=== PATIENT | male | born 1950 | race Caucasian/White ===

== ENCOUNTER 2016-04-17 04:15 | Inpatient (IN) | payer MEDICARE, BC ==
[2016-04-17] VITALS (12 sets, daily range): BP systolic 121–192; BP diastolic 78–114; PULSE 88–136; RESP 19–30; TEMP 97.1; O2SAT 93–100
[~2016-04-17] VITALS: Ht 180.3 cm; Wt 63.4 kg
[2016-04-17] MEDS: RESP: ALBUTEROL 2.5 MG/IPRATROPIUM 0.5 MG NEB (SCH) INH (04:28)
[2016-04-17] MEDS ORDERED: methylPREDNISolone SOD SUCC 125 MG/2 ML VIAL IVP ONE (04:30)
[2016-04-17] MEDS ORDERED: LORazepam 2 MG/ML VIAL IV PUSH ONE (04:30)
[2016-04-17] MEDS ORDERED: SODIUM CHLORIDE 0.9% FLUSH 5 ML FLUSH IVF PRN (04:30)
[2016-04-17] MEDS ORDERED: ALBU0.08 NEB (04:37)
[2016-04-17] MEDS ORDERED: FISH1000 PO (04:37)
[2016-04-17] MEDS ORDERED: VENTAER INH (04:37)
--- NOTE | 2016-04-17 04:46 | PD ---
HPI Chief Complaint: Respiratory Distress Time Seen by Provider: 04:20 Travel History International Travel<30 days: No Contact w/Intl Traveler<30days: No Traveled to known affect area: No History of Present Illness HPI 65-year-old male arrives by EMS with dyspnea. He has a history of COPD. He ran out of his albuterol treatments at home. For the past 4-5 days he has been quite dyspneic. It has been gradually worsening. He describes some mild chest tightness. EMS notes an O2 sat of 70s on scene. He received a few breathing treatments en route as well as Solu-Medrol. EMS notes mild improvement with an O2 sat about 85% upon arrival here. No fever. PFSH Past Medical History High Cholesterol: Yes COPD: Yes Diminished Hearing: No Hypertension: Yes Tetanus Vaccination: Unknown Influenza Vaccination: No Past Surgical History Abdominal Surgery: Yes (tumor removed from ABD) Appendectomy: Yes Eye Surgery: Yes (cataract removed b/l) Genitourinary Surgery: Yes (prostate CA surgery ) Tonsillectomy: Yes Other Surgery: Yes (hernia repairs in groin, left leg vein replaced) Social History Alcohol Use: Yes (occasionally) Tobacco Use: Yes (0.5 ppd) Substance Use: Yes (franchesca valdivia) Allergies-Medications (Allergen,Severity, Reaction): Coded Allergies: No Known Allergies (Unverified , 04/17/16) Reported Meds & Prescriptions Reported Meds & Active Scripts Active Reported Ventolin Hfa 18 GM Inh (Albuterol Sulfate) 90 Mcg/Act Aer 2 Puff INH Q4-6H PRN Fish Oil ([place]-3 Fatty Acids) 1,000 Mg Cap 2 Tab PO JOHNNIE Albuterol Neb (Albuterol Sulfate) 2.5 Mg/3 Ml Neb 2.5 Mg NEB Q4HR NEB While awake Review of Systems Except as stated in HPI: all other systems reviewed are Neg Physical Exam Narrative GENERAL: 65 yo M, moderate distress 2/2 dyspnea and/or anxiety SKIN: Warm and dry. HEAD: Atraumatic. Normocephalic. EYES: Pupils equal and round. No scleral icterus. No injection or drainage. ENT: No nasal bleeding or discharge. Mucous membranes pink and moist. NECK: Trachea midline. No JVD. CARDIOVASCULAR: Regular rate and rhythm. RESPIRATORY: No accessory muscle use. Clear to auscultation. Breath sounds equal bilaterally. GASTROINTESTINAL: Abdomen soft, non-tender, nondistended. Hepatic and splenic margins not palpable. MUSCULOSKELETAL: Extremities without clubbing, cyanosis, or edema. No obvious deformities. NEUROLOGICAL: Awake and alert. No obvious cranial nerve deficits. Motor grossly within normal limits. Five out of 5 muscle strength in the arms and legs. Normal speech. PSYCHIATRIC: Appropriate mood and affect; insight and judgment normal. Data Data Last Documented VS Vital Signs Date Time Temp Pulse Resp B/P Pulse Ox O2 Delivery O2 Flow Rate FiO2 04/17/16 05:35 130 20 121/83 94 Nasal Cannula 4 04/17/16 04:22 97.1 Orders Complete Blood Count With Diff (04/17/16 04:20) Basic Metabolic Panel (Bmp) (04/17/16 04:20) Ckmb (Isoenzyme) Profile (04/17/16 04:20) Troponin I (04/17/16 04:20) Arterial Blood Gas (Abg) (04/17/16 04:20) Iv Access Insert/Monitor (04/17/16 04:20) Ecg Monitoring (04/17/16 04:20) Oximetry (04/17/16 04:20) Oxygen Administration (04/17/16 04:20) Chest, Single Ap (04/17/16 04:20) Sodium Chloride 0.9% Flush (Ns Flush) (04/17/16 04:30) Methylprednisolone So Succ Inj (Solumedr (04/17/16 04:30) Albuterol-Ipratropium Neb (Duoneb Neb) (04/17/16 04:30) Resp Bipap / Cpap Non Invas Vt (04/17/16 04:20) Lorazepam Inj (Ativan Inj) (04/17/16 04:30) Electrocardiogram (04/17/16 ) Act Partial Throm Time (Ptt) (04/17/16 05:13) Prothrombin Time / Inr (Pt) (04/17/16 05:13) Albuterol Neb (Albuterol Neb) (04/17/16 06:45) Ns (Bolus) Inj (04/17/16 06:45) Labs Laboratory Tests Test 04/17/16 04/17/16 04/17/16 04:35 05:20 05:35 White Blood Count 13.7 TH/MM3 Red Blood Count 5.10 MIL/MM3 Hemoglobin 15.7 GM/DL Hematocrit 46.3 % Mean Corpuscular Volume 90.7 FL Mean Corpuscular Hemoglobin 30.8 PG Mean Corpuscular Hemoglobin 33.9 % Concent Red Cell Distribution Width 13.3 % Platelet Count 457 TH/MM3 Mean Platelet Volume 6.9 FL Neutrophils (%) (Auto) 34.3 % Lymphocytes (%) (Auto) 38.9 % Monocytes (%) (Auto) 9.9 % Eosinophils (%) (Auto) 14.5 % Basophils (%) (Auto) 2.4 % Neutrophils # (Auto) 4.7 TH/MM3 Lymphocytes # (Auto) 5.3 TH/MM3 Monocytes # (Auto) 1.4 TH/MM3 Eosinophils # (Auto) 2.0 TH/MM3 Basophils # (Auto) 0.3 TH/MM3 CBC Comment AUTO DIFF Differential Total Cells 100 Counted Neutrophils % (Manual) 36 % Lymphocytes % 39 % Monocytes % 8 % Eosinophils % 16 % Basophils % 1 % Neutrophils # (Manual) 4.9 TH/MM3 Differential Comment FINAL DIFF MANUAL Atypical Lymphocytes % Platelet Estimate NORMAL Platelet Morphology Comment NORMAL Red Cell Morphology Comment NORMAL Sodium Level 133 MEQ/L Potassium Level 3.3 MEQ/L Chloride Level 95 MEQ/L Carbon Dioxide Level 32.1 MEQ/L Anion Gap 6 MEQ/L Blood Urea Nitrogen 3 MG/DL Creatinine 0.67 MG/DL Estimat Glomerular Filtration 119 ML/MIN Rate Random Glucose 120 MG/DL Calcium Level 8.9 MG/DL Total Creatine Kinase 86 U/L Troponin I LESS THAN 0.02 NG/ML Blood Gas Puncture Site LT RADIAL Blood Gas Patient Temperature 98.6 Blood Gas HCO3 30 mmol/L Blood Gas Base Excess 5.4 mmol/L Blood Gas Oxygen Saturation 89 % Arterial Blood pH 7.44 Arterial Blood Partial 44 mmHg Pressure CO2 Arterial Blood Partial 65 mmHG Pressure O2 Arterial Blood Oxygen Content 19.0 Vol % Arterial Blood 1.9 % Carboxyhemoglobin Arterial Blood Methemoglobin 2.1 % Blood Gas Hemoglobin 15.2 G/DL Oxygen Delivery Device NASAL CANNULA Blood Gas Liter Flow 4 L/M Prothrombin Time 10.2 SEC Prothromb Time International 0.9 RATIO Ratio Activated Partial 26.6 SEC Thromboplast Time MDM Medical Decision Making Medical Screen Exam Complete: Yes Emergency Medical Condition: Yes Medical Record Reviewed: Yes Differential Diagnosis COPD exacerbation, PNA, PTX, ACS, PE, pulmonary effusion, pericardial effusion Narrative Course CBC & BMP Diagram 04/17/16 04:35 EKG: sinus tachycardia rate 120 LPFB Tn < 0.02 AB.44 / 44 / 30 pO2 65 on 4L NC INR 0.9 Last 24 hours Impressions Chest X-Ray 04/17/16 0420 Signed Impressions: Service Date/Time: Sunday, April 17, 2016 05:26 - CONCLUSION: No acute disease. Earnest Phillips MD Patient received a total of 6 breathing treatments including EMS treatments. Solu-Medrol given. He was ambulated around the pod and desatted to 85% upon return to his bed. Admission for oxygen therapy and breathing treatments. Discussed with Dr. Keyes. Critical Care Narrative Aggregate critical care time was 40 minutes. Time to perform other separately billable procedures was not included in the critical care time. My time did not include minutes spent treating any other patients simultaneously or on activities that did not directly contribute to the patient's treatment. The services I provided to this patient were to treat and/or prevent clinically significant deterioration that could result in: Hypoxia, cardiopulmonary arrest I provided critical care services requiring my management, as noted below: Chart data review, documentation time, medication orders and management, vital sign assessments/reviewing monitor data, ordering and reviewing lab tests, ordering and interpreting/reviewing x-rays and diagnostic studies, care of the patient and discussion of the patient with the admitting physicians. Diagnosis Primary Impression: COPD exacerbation Additional Impression: Hypoxemia Admitting Information Admitting Physician Requests: Admit Additional Instructions: You have a choice when it comes to health care, and we are glad that you chose [facility]. Hopefully, we have met your expectations on today's visit. You are welcome to return to [facility] at any time, as we are committed to meeting the health care needs of our community. Antonio Emerson MD Apr 17, 2016 04:46
[2016-04-17 04:56] LABS: AUTOMATED NEUTROPHIL # 4.7 TH/MM3 (1.8-7.7); BASOPHIL # 0.3 TH/MM3 (0-0.2); BASOPHIL % 2.4 % (0.0-2.0); EOSINOPHIL % 14.5 % (0.0-4.0); HEMATOCRIT 46.3 % (39.0-51.0); HEMO FLAGS AUTO DIFF; LYMPH % 38.9 % (9.0-44.0); LYMPHOCYTE # 5.3 TH/MM3 (1.0-4.8); MEAN CELL VOLUME 90.7 FL (80.0-100.0); MEAN CORPUSCULAR HEMOGLOBIN 30.8 PG (27.0-34.0); MEAN CORPUSCULAR HGB CONC 33.9 % (32.0-36.0); MONO % 9.9 % (0.0-8.0); NEUT % 34.3 % (16.0-70.0); PLATELET COUNT 457 TH/MM3 (150-450); RED CELL DISTRIBUTION WIDTH 13.3 % (11.6-17.2); WHITE BLOOD COUNT 13.7 TH/MM3 (4.0-11.0)
[2016-04-17 05:10] LABS: ANION GAP 6 MEQ/L (5-15); BICARBONATE 32.1 MEQ/L (21.0-32.0); BLOOD UREA NITROGEN 3 MG/DL (7-18); CHLORIDE 95 MEQ/L (98-107); GLOMERULAR FILTRATION RATE 119 ML/MIN (>89); POTASSIUM 3.3 MEQ/L (3.5-5.1); SODIUM (NA) 133 MEQ/L (136-145)
[2016-04-17 05:21] LABS: CREATINE KINASE 86 U/L (39-308)
--- NOTE | 2016-04-17 05:38 | RADRPT ---
EXAM DATE/TIME: 04/17/2016 05:26 [facility] COMPARISON: No previous studies available for comparison. INDICATIONS : Shortness of breath and cough. MEDICAL HISTORY : None. SURGICAL HISTORY : None. ENCOUNTER: Initial ACUITY: 4 - 6 days PAIN SCORE: 0/10 LOCATION: Bilateral chest FINDINGS: Hyperinflation. Remote left sided rib fractures. Heart size normal. Clear lungs. CONCLUSION: No acute disease. Earnest Phillips MD on April 17, 2016 at 5:36 Board Certified Radiologist. This report was verified electronically.
[2016-04-17 05:50] LABS: BLOOD GAS BASE EXCESS 5.4 mmol/L (-2-2); BLOOD GAS CARBOXYHEMOGLOBIN 1.9 % (0-4); BLOOD GAS HCO3 30 mmol/L (22-26); BLOOD GAS METHEMOGLOBIN 2.1 % (0-2); BLOOD GAS O2 HGB SATURATION 89 % (90-100); BLOOD GAS PCO2 44 mmHg (38-42); BLOOD GAS PO2 65 mmHG (61-120); BLOOD GAS TOTAL HGB 15.2 G/DL (12.0-16.0); TEMP CORR TO 98.6
[2016-04-17 05:50] LABS: APTT (PATIENT) 26.6 SEC (24.3-30.1); INTERNATIONAL NORMALIZED RATIO 0.9 RATIO; PROTHROMBIN TIME - PATIENT 10.2 SEC (9.8-11.6)
[2016-04-17 05:51] LABS: CRITICAL VALUE YES; DRAW SITE LT RADIAL; LITER FLOW 4 L/M; NUMBER OF ARTERIAL PUNCTURES 1; OXYGEN DEVICE NASAL CANNULA; STAT YES; ULNAR PULSE PRESENT
[2016-04-17 06:02] LABS: BASOPHILS 1 % (0-2); EOSINOPHILS 16 % (0-4); NEUTROPHIL # MANUAL DIFF 4.9 TH/MM3 (1.8-7.7); POLYS (SEG NEUTROPHILS) 36 % (16-70); SCAN/DIFF FINAL DIFF MANUAL; WBC DIFF SAMPLE 100
[2016-04-17 06:04] LABS: PLATELET ESTIMATE SMEAR NORMAL (NORMAL); PLATELET MORPHOLOGY NORMAL (NORMAL)
[2016-04-17] MEDS ORDERED: BISACODYL 10 MG SUPP PR PRN (06:45)
[2016-04-17] MEDS ORDERED: SODIUM CHLOR 0.9% 1000 ML INJ 1,000 ML IV ONE (06:45)
[2016-04-17] MEDS ORDERED: MORPHINE SULFATE 4 MG/ML INJ IV PRN (06:45)
[2016-04-17] MEDS ORDERED: ACETAMINOPHEN/HYDROcodone 325 MG/5 MG TAB PO PRN (06:45)
[2016-04-17] MEDS ORDERED: RESP: ALBUTEROL 2.5 MG/3 ML NEB (SCH) NEB ONE (06:45)
[2016-04-17] MEDS ORDERED: ACETAMINOPHEN 325 MG TAB PO PRN (06:45)
[2016-04-17] MEDS ORDERED: ONDANSETRON HCL 4 MG/2 ML VIAL IVP PRN (06:45)
[2016-04-17] MEDS ORDERED: SODIUM CHLORIDE 0.9% FLUSH 5 ML FLUSH FLUSH PRN (06:45)
[2016-04-17] MEDS: RESP: ALBUTEROL 2.5 MG/IPRATROPIUM 0.5 MG NEB (SCH) NEB ×4 (07:25→21:36)
[2016-04-17] MEDS ORDERED: LEVOFLOXACIN 750 MG PREMIX INJ 150 ML IV SCH (08:00)
--- NOTE | 2016-04-17 09:34 | HHI.HP ---
[facility] No Primary Care Physician Admission Diagnosis COPD Exacerbation, Hypoxia Diagnoses: (1) Acute respiratory failure with hypoxia Travel History International Travel<30 Days: No Contact w/Intl Traveler <30 Da: No Traveled to Known Affected Are: No Sepsis Criteria SIRS Criteria (2 or more): Heart rate over 90, RR > 20 or PaCO2 < 32, WBC > 54335, < 4000 or > 10% bands Sepsis Criteria (SIRS+source): Infect source susp/known History of Present Illness Mr. Hansen is a pleasant 65-year-old male with a history of COPD, prostate cancer who presents to the emergency department on 04/17/2016 with dyspnea that started about a week and half prior to this admission. Patient reports mostly dry cough, no fever or chills. His dyspnea has been gradually worsening. He describes mild chest tightness as well. Per ED documentation, EMS noted O2 saturation 70s and on arrival his O2 sat saturation was 85%. Patient denies any changes in bowel or bladder habits. He reports about 40 pound weight loss in the last 1 year. At the time of this interview, patient reports significant improvement of symptoms. However he continues to cough. He is from [place] but spends part of the year in [place]. He reports being pretty much sedentary while he has been in [place]. On arrival heart rate 136 respiration 30 blood pressure 192/114, temperature 97.1F, pulse oximetry 97% on 6 L of oxygen. Chest x-ray shows hyperinflation but no acute changes. Past Family Social History Past Medical History COPD, hypertension, prostate cancer. Past Surgical History Stomach surgery during childhood Prostate cancer surgery Left leg vein graft 5 or 6 hernia repair. Reported Medications Ventolin Hfa 18 GM Inh (Albuterol Sulfate) 90 Mcg/Act Aer 2 Puff INH Q4-6H PRN Fish Oil ([place]-3 Fatty Acids) 1,000 Mg Cap 2 Tab PO JOHNNIE Albuterol Neb (Albuterol Sulfate) 2.5 Mg/3 Ml Neb 2.5 Mg NEB Q4HR NEB While awake Allergies: Coded Allergies: No Known Allergies (Unverified , 04/17/16) Family History Mother had congestive heart failure, malaria Social History Patient continues to smoke about half a pack a day. Drinks alcohol occasionally and also uses marijuana occasionally. Physical Exam Vital Signs Vital Signs Date Time Temp Pulse Resp B/P Pulse Ox O2 Delivery O2 Flow Rate FiO2 04/17/16 07:26 100 Nasal Cannula 2.00 04/17/16 07:00 107 19 123/78 100 Nasal Cannula 4 04/17/16 06:37 97 20 123/80 94 Nasal Cannula 4 04/17/16 05:35 130 20 121/83 94 Nasal Cannula 4 04/17/16 04:34 128 26 154/87 99 Nasal Cannula 6 04/17/16 04:30 100 Aerosol Mask 8.00 04/17/16 04:27 97 Nasal Cannula 6 04/17/16 04:27 97 Nasal Cannula 6 04/17/16 04:22 97.1 136 30 192/114 Physical Exam GENERAL: This is a well-nourished, well-developed patient, in no apparent distress. Speaks in full sentences SKIN: No rashes, ecchymoses or lesions. Warm and dry. HEAD: Atraumatic. Normocephalic. No temporal or scalp tenderness. EYES: Pupils equal round and reactive. No injection or drainage. ENT: Nose without bleeding, purulent drainage or septal hematoma. Airway patent. NECK: Trachea midline. No lymphadenopathy. Supple, nontender, no meningeal signs. CARDIOVASCULAR: Regular rhythm, tachycardic without murmurs, gallops, or rubs. No JVD. RESPIRATORY: Poor air entry. Diffuse rhonchi. Expiratory wheezes noted. No crackles appreciated. GASTROINTESTINAL: Abdomen soft, non-tender, nondistended. No guarding. MUSCULOSKELETAL: Extremities without clubbing, cyanosis, or edema. NEUROLOGICAL: Awake and alert. Cranial nerves II through XII intact. No focal neurological deficits. Normal speech. Laboratory Laboratory Tests Test 04/17/16 04/17/16 04/17/16 04:35 05:20 05:35 White Blood Count 13.7 Red Blood Count 5.10 Hemoglobin 15.7 Hematocrit 46.3 Mean Corpuscular Volume 90.7 Mean Corpuscular Hemoglobin 30.8 Mean Corpuscular Hemoglobin 33.9 Concent Red Cell Distribution Width 13.3 Platelet Count 457 Mean Platelet Volume 6.9 Neutrophils (%) (Auto) 34.3 Lymphocytes (%) (Auto) 38.9 Monocytes (%) (Auto) 9.9 Eosinophils (%) (Auto) 14.5 Basophils (%) (Auto) 2.4 Neutrophils # (Auto) 4.7 Lymphocytes # (Auto) 5.3 Monocytes # (Auto) 1.4 Eosinophils # (Auto) 2.0 Basophils # (Auto) 0.3 CBC Comment AUTO DIFF Differential Total Cells 100 Counted Neutrophils % (Manual) 36 Lymphocytes % 39 Monocytes % 8 Eosinophils % 16 Basophils % 1 Neutrophils # (Manual) 4.9 Differential Comment FINAL DIFF MANUAL Atypical Lymphocytes Platelet Estimate NORMAL Platelet Morphology Comment NORMAL Red Cell Morphology Comment NORMAL Sodium Level 133 Potassium Level 3.3 Chloride Level 95 Carbon Dioxide Level 32.1 Anion Gap 6 Blood Urea Nitrogen 3 Creatinine 0.67 Estimat Glomerular Filtration 119 Rate Random Glucose 120 Calcium Level 8.9 Total Creatine Kinase 86 Troponin I LESS THAN 0.02 Blood Gas Puncture Site LT RADIAL Blood Gas Patient Temperature 98.6 Blood Gas HCO3 30 Blood Gas Base Excess 5.4 Blood Gas Oxygen Saturation 89 Arterial Blood pH 7.44 Arterial Blood Partial 44 Pressure CO2 Arterial Blood Partial 65 Pressure O2 Arterial Blood Oxygen Content 19.0 Arterial Blood 1.9 Carboxyhemoglobin Arterial Blood Methemoglobin 2.1 Blood Gas Hemoglobin 15.2 Oxygen Delivery Device NASAL CANNULA Blood Gas Liter Flow 4 Prothrombin Time 10.2 Prothromb Time International 0.9 Ratio Activated Partial 26.6 Thromboplast Time Result Diagram: 04/17/1643404/17/16434 Imaging Last Impressions Chest X-Ray 04/17/16419 Signed Impressions: Service Date/Time: Sunday, April 17, 2016 05:26 - CONCLUSION: No acute disease. Earnest Phillips MD Assessment and Plan Problem List: (1) Sepsis ICD Code: A41.9 Status: Acute (2) Acute respiratory failure with hypoxia ICD Code: J96.01 Status: Acute (3) COPD exacerbation ICD Code: J44.1 Status: Acute (4) Hypertension ICD Code: I10 Status: Acute (5) Tobacco abuse ICD Code: Z72.0 Status: Acute Assessment and Plan Mr. Hansen is a pleasant 65-year-old male with a history of prostate cancer, COPD who presents to the emergency department due to week to week and half long duration of worsening shortness of breath. He reports no fever or chills. He reports nonproductive cough. - Sepsis (tachycardic, tachypneic, WBC greater than 12 K, suspected infection pulmonary) - Acute respiratory failure with hypoxia - body in this report oxygen saturations 70s and in the ED 85%. - Acute COPD exacerbation - Wells score for PE 4.5 (PE likely, heart rate > 100). - Chest x-ray reviewed by me - shows hyperinflation and no acute findings. - We'll obtain a CT PE protocol given his tachycardia, dyspnea and patient has been relatively sedentary. - Continue supplemental oxygenation, DuoNeb, Solu-Medrol 40 mg IV every 6 hours. - We'll switch levofloxacin to by mouth. - Hypertension - Initial blood pressure was elevated. However currently blood pressure is within normal range. We'll continue to monitor. - We'll consider antihypertensives if indicated. - Tobacco abuse - Counseled patient on the importance of tobacco cessation. Patient verbalized understanding. Full code. Lovenox. Physician Certification 2 Midnight Certification Type: Admission for Inpatient Services Order for Inpatient Services The services are ordered in accordance with Medicare regulations or non- Medicare payer requirements, as applicable. In the case of services not specified as inpatient-only, they are appropriately provided as inpatient services in accordance with the 2-midnight benchmark. Estimated LOS (days): 2 days is the estimated time the patient will need to remain in the hospital, assuming treatment plan goals are met and no additional complications. Post-Hospital Plan: Home Kimmie Michel DO Apr 17, 2016 9:34 am
[2016-04-17] MEDS ORDERED: IOHEXOL 350 MG/ML 10 ML VIAL (for RAD DIAG) IV ONE (09:44)
[2016-04-17] MEDS ORDERED: ENOXAPARIN SODIUM 40 MG/0.4 ML SYRINGE SQ SCH (10:00)
[2016-04-17] MEDS: SODIUM CHLORIDE 0.9% FLUSH 5 ML FLUSH FLUSH SCH (10:05)
[2016-04-17] MEDS: guaiFENesin E.R. 600 MG TAB PO SCH (10:05)
--- NOTE | 2016-04-17 10:23 | RADRPT ---
EXAM DATE/TIME: 04/17/2016 09:42 [facility] COMPARISON: No previous studies available for comparison. INDICATIONS: Dyspnea x 5 days. Chest tightness. Tachycardia. Decreased O2 saturation. IV CONTRAST: 70 cc Omnipaque 350 (iohexol) IV RADIATION DOSE: 22.77 CTDIvol (mGy) MEDICAL HISTORY: Hypertension. Chronic obstructive pulmonary disease. Carcinoma, prostate. SURGICAL HISTORY: Appendectomy. Tumor removed from abdomen. ENCOUNTER: Initial ACUITY: 4 - 6 days PAIN SCALE: 4/10 LOCATION: Bilateral chest TECHNIQUE: Volumetric scanning of the chest was performed using a pulmonary embolism protocol MIP images were re constructed. Using automated exposure control and adjustment of the mA and/or kV according to patien t size, radiation dose was kept as low as reasonably achievable to obtain optimal diagnostic quality images. FINDINGS: Lungs are markedly hyper inflated but clear. Moderate emphysematous changes are noted in the apices of both lungs with large bullae. There are no suspicious lung lesions identified. There is no axillary adenopathy. There is minimal nonspecific mediastinal adenopathy. There is good visualization of the central pulmonary vessels. There are small emboli in the second o rder of branches on both the right and the left. Portion of the liver and spleen identified are free of focal defects. CONCLUSION: The study is positive for small distal emboli in both the right and left lungs. Micah Hines MD FACR on April 17, 2016 at 10:06 Board Certified Radiologist. This report was verified electronically.
--- NOTE | 2016-04-17 11:38 | EKG ---
Date Performed: 04/17/2016 Time Performed: 05:45:27 PTAGE: 65 years EKG: sinus tachycardia nonspecific st changes LEFT POSTERIOR FASCICULAR BLOCK ABNORMAL ECG PREVIOUS TRACING : 04/17/2016 05.34 DOCTOR: Hugo Mckinney Interpretating Date/Time 04/17/2016 11:37:01
[2016-04-17] MEDS: BUDESONIDE-FORMOTEROL 160/4.5 MCG INHALER INH SCH (12:07)
[2016-04-17] MEDS: APIXABAN 5 MG TABLET PO SCH (12:08)
[2016-04-17] MEDS: methylPREDNISolone SOD SUCC 40 MG/1 ML VIAL IV PUSH SCH ×2 (12:08→19:16)
[2016-04-18] VITALS (10 sets, daily range): BP systolic 118–152; BP diastolic 79–91; PULSE 96–121; RESP 18–20; TEMP 95.7–97.8; O2SAT 92–96
[2016-04-18] MEDS: guaiFENesin/CODEINE SYRUP 200 MG/20 MG/10 ML CUP PO PRN ×2 (00:11→22:59)
[2016-04-18] MEDS: APIXABAN 5 MG TABLET PO SCH ×3 (00:12→23:00)
[2016-04-18] MEDS: guaiFENesin E.R. 600 MG TAB PO SCH ×3 (00:12→23:00)
[2016-04-18] MEDS: BUDESONIDE-FORMOTEROL 160/4.5 MCG INHALER INH SCH ×3 (00:13→23:00)
[2016-04-18] MEDS: methylPREDNISolone SOD SUCC 40 MG/1 ML VIAL IV PUSH SCH ×4 (00:13→17:46)
[2016-04-18] MEDS: SODIUM CHLORIDE 0.9% FLUSH 5 ML FLUSH FLUSH SCH ×3 (00:14→23:00)
[2016-04-18] MEDS: RESP: ALBUTEROL 2.5 MG/IPRATROPIUM 0.5 MG NEB (PRN) NEB (04:45)
[2016-04-18 07:05] LABS: AUTOMATED NEUTROPHIL # 14.6 TH/MM3 (1.8-7.7); BASOPHIL % 0.2 % (0.0-2.0); HEMATOCRIT 39.6 % (39.0-51.0); HEMO FLAGS DIFF FINAL; LYMPH % 10.9 % (9.0-44.0); LYMPHOCYTE # 1.8 TH/MM3 (1.0-4.8); MEAN CELL VOLUME 90.8 FL (80.0-100.0); MEAN CORPUSCULAR HEMOGLOBIN 30.8 PG (27.0-34.0); MEAN CORPUSCULAR HGB CONC 33.9 % (32.0-36.0); MONO % 2.6 % (0.0-8.0); NEUT % 86.3 % (16.0-70.0); PLATELET COUNT 381 TH/MM3 (150-450); RED BLOOD COUNT 4.36 MIL/MM3 (4.50-5.90); WHITE BLOOD COUNT 16.9 TH/MM3 (4.0-11.0)
[2016-04-18 07:52] LABS: ALT (GPT) 15 U/L (12-78); ANION GAP 9 MEQ/L (5-15); BLOOD UREA NITROGEN 9 MG/DL (7-18); CHLORIDE 96 MEQ/L (98-107); POTASSIUM 4.1 MEQ/L (3.5-5.1); SODIUM (NA) 134 MEQ/L (136-145)
[2016-04-18 07:55] LABS: ALKALINE PHOSPHATASE 73 U/L (45-117); AST (GOT) 6 U/L (15-37); GLOMERULAR FILTRATION RATE 106 ML/MIN (>89); TOTAL BILIRUBIN ADULT 0.4 MG/DL (0.2-1.0)
[2016-04-18] MEDS: RESP: ALBUTEROL 2.5 MG/IPRATROPIUM 0.5 MG NEB (SCH) NEB ×4 (08:02→21:01)
[2016-04-18] MEDS: LEVOFLOXACIN 750 MG TAB PO SCH (09:06)
--- NOTE | 2016-04-18 12:48 | HHI.PR ---
Subjective Remarks Follow-up for acute COPD exacerbation, acute respiratory failure, PE. Mr. Hansen is doing well. Denies any chest pain, fever, chills. Objective Vitals Vital Signs Date Time Temp Pulse Resp B/P Pulse Ox O2 Delivery O2 Flow Rate FiO2 04/18/16 08:04 93 Nasal Cannula 2.00 04/18/16 08:00 Nasal Cannula 2.00 04/18/16 08:00 96.2 104 18 134/84 95 04/18/16 04:47 92 Nasal Cannula 04/18/16 04:00 97.4 104 19 142/91 92 04/18/16 01:59 96 04/18/16 01:00 Nasal Cannula 2.00 04/18/16 00:05 95.7 116 19 152/83 92 04/17/16 22:26 83 97 04/17/16 21:38 96 2.00 04/17/16 19:15 104 21 148/86 96 Nasal Cannula 2 04/17/16 15:03 97 24 130/93 95 Nasal Cannula 2 Result Diagram: 04/18/16 0520 04/18/16 0520 Imaging Last Impressions Chest X-Ray 04/17/16 0420 Signed Impressions: Service Date/Time: Sunday, April 17, 2016 05:26 - CONCLUSION: No acute disease. Earnest Phillips MD CT Angiography 04/17/16 0000 Signed Impressions: Service Date/Time: Sunday, April 17, 2016 09:42 - CONCLUSION: The study is positive for small distal emboli in both the right and left lungs. Micah Hines MD FACR Objective Remarks GENERAL: Alert, Oriented x 3, NAD. SKIN: Warm and dry. HEAD: Normocephalic. EYES: No scleral icterus. No injection or drainage. NECK: Supple, trachea midline. No JVD or lymphadenopathy. CARDIOVASCULAR: Regular rate and rhythm without murmurs, gallops, or rubs. RESPIRATORY: Breath sounds equal bilaterally. No accessory muscle use. GASTROINTESTINAL: Abdomen soft, non-tender, nondistended. MUSCULOSKELETAL: No cyanosis, or edema. BACK: Nontender without obvious deformity. No CVA tenderness. Procedures None. A/P Problem List: (1) Sepsis ICD Code: A41.9 Status: Acute (2) Acute respiratory failure with hypoxia ICD Code: J96.01 Status: Acute (3) COPD exacerbation ICD Code: J44.1 Status: Acute (4) Hypertension ICD Code: I10 Status: Acute (5) Tobacco abuse ICD Code: Z72.0 Status: Acute Assessment and Plan Mr. Hansen is a pleasant 65-year-old male with a history of prostate cancer, COPD who presents to the emergency department due to week to week and half long duration of worsening shortness of breath. He reports no fever or chills. He reports nonproductive cough. - Sepsis (tachycardic, tachypneic, WBC greater than 12 K, suspected infection pulmonary) - Acute respiratory failure with hypoxia - body in this report oxygen saturations 70s and in the ED 85%. - Acute COPD exacerbation - Acute bilateral pulmonary embolism - Wells score for PE on admission 4.5 (PE likely, heart rate > 100). - Chest x-ray reviewed by me - shows hyperinflation and no acute findings. - CT PE study, reviewed by me shows distal emboli in both right and left lungs. - Continue supplemental oxygenation, DuoNeb, Solu-Medrol 40 mg IV every 6 hours. - Continue Levaquin. - Hypertension - Initial blood pressure was elevated. However currently blood pressure is within normal range. We'll continue to monitor. - Tobacco abuse - Counseled patient on the importance of tobacco cessation. Patient verbalized understanding. Full code. Apixaban. Kimmie Michel DO Apr 18, 2016 12:48 pm
[2016-04-19 00:31] VITALS: BP 151/94; PULSE 120; RESP 18; TEMP 97; O2SAT 93
[2016-04-19] MEDS: methylPREDNISolone SOD SUCC 40 MG/1 ML VIAL IV PUSH SCH ×3 (00:55→11:23)
[2016-04-19 04:00] VITALS: BP 126/78; PULSE 102; RESP 16; TEMP 98.8; O2SAT 99
[2016-04-19] MEDS: RESP: ALBUTEROL 2.5 MG/IPRATROPIUM 0.5 MG NEB (PRN) NEB (06:22)
[2016-04-19] MEDS: guaiFENesin/CODEINE SYRUP 200 MG/20 MG/10 ML CUP PO PRN (06:24)
[2016-04-19 08:16] VITALS: BP 155/91; PULSE 114; RESP 20; TEMP 97; O2SAT 95
[2016-04-19 08:21] VITALS: O2SAT 97
[2016-04-19] MEDS: RESP: ALBUTEROL 2.5 MG/IPRATROPIUM 0.5 MG NEB (SCH) NEB ×2 (08:21→11:09)
[2016-04-19] MEDS: SODIUM CHLORIDE 0.9% FLUSH 5 ML FLUSH FLUSH SCH (09:00)
[2016-04-19] MEDS: LEVOFLOXACIN 750 MG TAB PO SCH (09:24)
[2016-04-19] MEDS: guaiFENesin E.R. 600 MG TAB PO SCH (09:24)
[2016-04-19] MEDS: APIXABAN 5 MG TABLET PO SCH (09:25)
[2016-04-19] MEDS: BUDESONIDE-FORMOTEROL 160/4.5 MCG INHALER INH SCH (09:26)
[2016-04-19 12:44] VITALS: BP 124/91; PULSE 120; RESP 20; TEMP 98.8; O2SAT 95
[2016-04-19] MEDS ORDERED: VENTAER INH (13:46)
[2016-04-19] MEDS ORDERED: LEVA750T PO (13:46)
[2016-04-19] MEDS ORDERED: APIX5TAB PO (13:46)
[2016-04-19] MEDS ORDERED: GUAI100S5 PO (13:46)
[2016-04-19] MEDS ORDERED: SYMB160A INH (13:46)
[2016-04-19] MEDS ORDERED: PRED20 PO (13:46)
--- NOTE | 2016-04-19 13:50 | HHI.DS ---
Discharge Summary Admission Date Apr 17, 2016 at 6:39 am Discharge Date: Apr 19, 2016 Admitting Diagnosis COPD Exacerbation, Hypoxia (1) Sepsis ICD Code: A41.9 Diagnosis: Principal (2) Acute respiratory failure with hypoxia ICD Code: J96.01 Diagnosis: Principal (3) COPD exacerbation ICD Code: J44.1 (4) Hypertension ICD Code: I10 (5) Tobacco abuse ICD Code: Z72.0 (6) Bilateral pulmonary embolism ICD Code: I26.99 Diagnosis: Principal Procedures None. Brief History - From Admission Mr. Hansen is a pleasant 65-year-old male with a history of COPD, prostate cancer who presents to the emergency department on 04/17/2016 with dyspnea that started about a week and half prior to this admission. Patient reports mostly dry cough, no fever or chills. His dyspnea has been gradually worsening. He describes mild chest tightness as well. Per ED documentation, EMS noted O2 saturation 70s and on arrival his O2 sat saturation was 85%. Patient denies any changes in bowel or bladder habits. He reports about 40 pound weight loss in the last 1 year. At the time of this interview, patient reports significant improvement of symptoms. However he continues to cough. He is from [place] but spends part of the year in [place]. He reports being pretty much sedentary while he has been in [place]. On arrival heart rate 136 respiration 30 blood pressure 192/114, temperature 97.1F, pulse oximetry 97% on 6 L of oxygen. Chest x-ray shows hyperinflation but no acute changes. CBC/BMP: 04/18/16 0520 04/18/16 0520 Significant Findings Laboratory Tests Test 04/17/16 04/17/16 04/18/16 04:35 05:20 05:20 White Blood Count 13.7 TH/MM3 16.9 TH/MM3 (4.0-11.0) (4.0-11.0) Platelet Count 457 TH/MM3 (150-450) Mean Platelet Volume 6.9 FL (7.0-11.0) Monocytes (%) (Auto) 9.9 % (0.0-8.0) Eosinophils (%) (Auto) 14.5 % (0.0-4.0) Basophils (%) (Auto) 2.4 % (0.0-2.0) Lymphocytes # (Auto) 5.3 TH/MM3 (1.0-4.8) Monocytes # (Auto) 1.4 TH/MM3 (0-0.9) Eosinophils # (Auto) 2.0 TH/MM3 (0-0.4) Basophils # (Auto) 0.3 TH/MM3 (0-0.2) Eosinophils % 16 % (0-4) Sodium Level 133 MEQ/L 134 MEQ/L (136-145) (136-145) Potassium Level 3.3 MEQ/L (3.5-5.1) Chloride Level 95 MEQ/L 96 MEQ/L (98-107) (98-107) Carbon Dioxide Level 32.1 MEQ/L (21.0-32.0) Blood Urea Nitrogen 3 MG/DL (7-18) Random Glucose 120 MG/DL 128 MG/DL (74-106) (74-106) Troponin I LESS THAN 0.02 NG/ML (0.02-0.05) Blood Gas HCO3 30 mmol/L (22-26) Blood Gas Base Excess 5.4 mmol/L (-2-2) Blood Gas Oxygen Saturation 89 % (90-100) Arterial Blood pH 7.44 (7.380-7.420) Arterial Blood Partial 44 mmHg (38-42) Pressure CO2 Arterial Blood Methemoglobin 2.1 % (0-2) Red Blood Count 4.36 MIL/MM3 (4.50-5.90) Neutrophils (%) (Auto) 86.3 % (16.0-70.0) Neutrophils # (Auto) 14.6 TH/MM3 (1.8-7.7) Aspartate Amino Transf 6 U/L (15-37) (AST/SGOT) Imaging Last Impressions Chest X-Ray 04/17/16 0420 Signed Impressions: Service Date/Time: Sunday, April 17, 2016 05:26 - CONCLUSION: No acute disease. Earnest Phillips MD CT Angiography 04/17/16 0000 Signed Impressions: Service Date/Time: Sunday, April 17, 2016 09:42 - CONCLUSION: The study is positive for small distal emboli in both the right and left lungs. Micah Hines MD FACR PE at Discharge GENERAL: Alert, Oriented x 3, NAD. SKIN: Warm and dry. HEAD: Normocephalic. EYES: No scleral icterus. No injection or drainage. NECK: Supple, trachea midline. No JVD or lymphadenopathy. CARDIOVASCULAR: Regular rate and rhythm without murmurs, gallops, or rubs. RESPIRATORY: Breath sounds equal bilaterally. No accessory muscle use. GASTROINTESTINAL: Abdomen soft, non-tender, nondistended. MUSCULOSKELETAL: No cyanosis, or edema. BACK: Nontender without obvious deformity. No CVA tenderness. Pt update on day of discharge Patient is doing well. No chest pain, SOB, fever, chills. Walk test indicated no need for supplemental O2. Hospital Course Mr. Hansen is a pleasant 65-year-old male with a history of prostate cancer, COPD who presents to the emergency department due to week to week and half long duration of worsening shortness of breath. He reports no fever or chills. He reports nonproductive cough. - Sepsis (tachycardic, tachypneic, WBC greater than 12 K, suspected infection pulmonary) - Acute respiratory failure with hypoxia - body in this report oxygen saturations 70s and in the ED 85%. - Acute COPD exacerbation - Acute bilateral pulmonary embolism - Wells score for PE on admission 4.5 (PE likely, heart rate > 100). - Chest x-ray reviewed by me - shows hyperinflation and no acute findings. - CT PE study, reviewed by me shows distal emboli in both right and left lungs. - Continued supplemental oxygenation, DuoNeb, Solu-Medrol 40 mg IV every 6 hours. - Continued Levaquin. - Hypertension - Initial blood pressure was elevated. However blood pressure is within normal range. We'll continue to monitor. - Tobacco abuse - Counseled patient on the importance of tobacco cessation. Patient verbalized understanding. Walk test indicated no need for supplemental O2. Patient was subsequently discharged home. Pt Condition on Discharge: Good Discharge Disposition: Discharge Home Discharge Time: > 30 minutes Discharge Instructions DIET: Follow Instructions for: As Tolerated, No Restrictions Activities you can perform: Regular-No Restrictions Follow up Referrals: PCP Follow-up - 1 Week New Medications: Prednisone (Prednisone) 20 Mg Tab 20 MG PO BID COPD #8 Ref 0 TAB Apixaban (Eliquis) 5 Mg Tab 10 MG PO BID Finish this Rx before starting 5mg twice a day. Blood Clot Prevention #9 TAB Apixaban (Eliquis) 5 Mg Tab 5 MG PO BID Blood Clot Prevention #60 TAB Budesonide-Formoterol Inh (Symbicort Inh) 160-4.5 Mcg/Act Aero 2 PUFF INH Q12HR COPD Days 30 INHALER Guaifenesin-Codeine Liq (Guaifenesin-Codeine Liq) 100-10 Mg/5 Ml Soln 10 ML PO Q6H PRN COUGH Days 10 ML Levofloxacin (Levaquin) 750 Mg Tab 750 MG PO DAILY Infection #5 TAB Continued Medications: Albuterol 18 GM Inh (Ventolin Hfa 18 GM Inh) 90 Mcg/Act Aer 2 PUFF INH Q4-6H PRN SHORTNESS OF BREATH #1 Ref 0 INHALER (This prescription has been renewed) Albuterol Neb (Albuterol Neb) 2.5 Mg/3 Ml Neb 2.5 MG NEB Q4HR NEB While awake Breathing Treatment #60 Ref 0 NEBULE Buckner-3 Fatty Acids (Fish Oil) 1,000 Mg Cap 2 TAB PO Kimmie Bobo DO Apr 19, 2016 13:50
[2016-04-24] MEDS ORDERED: APIXABAN 5 MG TABLET PO SCH (09:00)
== END 2016-04-19 16:44 | disposition home or self-care (01) | DRG 871 ==
LOC: NEPC 04:15 → NEDA 06:39 → NEDH 11:53 → N05B 22:42
PROVIDERS: ADMIT Hospitalist; ATTEND Hospitalist
PROC: 3E0F7GC Introduction of Other Therapeutic Substance into Respiratory Tract, Via Natural or Artificial Opening (ICD-10-PCS; principal; 2016-04-17)
DX: A41.9 Sepsis, unspecified organism (principal); J96.01 Acute respiratory failure with hypoxia; I26.99 Other pulmonary embolism without acute cor pulmonale; J44.1 Chronic obstructive pulmonary disease with (acute) exacerbation; J98.8 Other specified respiratory disorders; I10 Essential (primary) hypertension; F17.210 Nicotine dependence, cigarettes, uncomplicated; Z85.46 Personal history of malignant neoplasm of prostate; E78.00 Pure hypercholesterolemia, unspecified; F12.90 Cannabis use, unspecified, uncomplicated
CPT/HCPCS: 36600; 71010; 71275; 80048; 80053; 82550; 82805; 84484; 85007; 85025; 85027; 85610; 85730; 93005; 94620; 94640; 94664; 96374; J1650; J1956; J2060; J2920; J7030; J7613; Q9967